=== PATIENT | male | born 1935 | race American Indian/Alaskan Native ===

== ENCOUNTER 2020-10-23 15:46 | Emergency (ER) | payer MEDICARE, OTHER ==
[~2020-10-23] VITALS: Ht 172.7 cm; Wt 81.6 kg
[2020-10-23] MEDS ORDERED: TDAP DIPH,PERTUSS,TET VAC/PF 0.5 ML DISP.SYRIN IM ONE ×2 (16:00→16:12)
[2020-10-23] MEDS ORDERED: ACETAMINOPHEN 325 MG TABLET PO ONE (16:00)
[2020-10-23] MEDS ORDERED: [UNRECOGNIZED DRUG - REMARK] (16:00)
[2020-10-23] MEDS ORDERED: ACETAMINOPHEN ES 500 MG TABLET ONE (16:09)
[2020-10-23] MEDS ORDERED: ACETAMINOPHEN 325 MG TABLET ONE (16:22)
--- NOTE | 2020-10-23 18:15 | NUR ---
Patient given written and verbal discharge instructions. Patient verbalizes understanding of instructions. Patient is ambulatory with steady gait. Refuses offer of halfway placement. Patient given list of available shelters in surrounding area.
--- NOTE | 2020-10-23 18:15 | NUR ---
Cesar virk in EDM - 10/23/20 at 1816 by JOSE Patient discharged to home in stable condition. Written and verbal after care instructions given. Patient verbalizes understanding of instructions. Stressed follow up or return to ER for worsening s/s.
== END 2020-10-23 18:19 | disposition home or self-care (01) ==
LOC: ER 15:46
DX: S80.212A Abrasion, left knee, initial encounter (principal); S80.211A Abrasion, right knee, initial encounter; W01.0XXA Fall on same level from slipping, tripping and stumbling without subsequent striking against object, initial encounter; Y93.01 Activity, walking, marching and hiking; Y92.410 Unspecified street and highway as the place of occurrence of the external cause; F03.90 Unspecified dementia, unspecified severity, without behavioral disturbance, psychotic disturbance, mood disturbance, and anxiety; Z59.0 Homelessness; M17.0 Bilateral primary osteoarthritis of knee; R03.0 Elevated blood-pressure reading, without diagnosis of hypertension
CPT/HCPCS: 70450; 90715; A4663; A9150